=== PATIENT | female | born 1975 | race Caucasian/White ===

== ENCOUNTER 2017-06-01 15:38 | Emergency (ER) | payer SELFPAY ==
[~2017-06-01] VITALS: Ht 154.9 cm; Wt 70.8 kg
[~2017-06-01 15:38] MED LIST: AUGMENTIN 875-1 EACH PO; BUPROPION XL150 MG PO; CENTRUM SILVER1 EAC3 PO; CITALOPRAM HBR20 MG PO; CITALOPRAM HBR40 MG PO; DEPAKENE250 MG PO; DULOXETINE HCL60 MG PO; GABAPENTIN600 MG; GABAPENTIN600 MG PO; IBUPROFEN800 MG PO; NORCO 5-325 TA1 EACH PO; NORCO 7.5-3251 EACH PO; PERCOCET 5-3251 EACH PO; TRAZODONE HCL100 MG PO; VOLTAREN-XR100 MG PO; ZOFRAN ODT4 MG PO
[2017-06-01] MEDS ORDERED: ERYTHROMYCIN1 GM OD (17:01)
[2017-06-01] MEDS ORDERED: PERCOCET 5-3251 EACH PO (17:01)
== END 2017-06-01 17:29 | disposition home or self-care (01) ==
LOC: ED 15:38
DX: T15.91XA Foreign body on external eye, part unspecified, right eye, initial encounter (principal); J45.909 Unspecified asthma, uncomplicated; F17.200 Nicotine dependence, unspecified, uncomplicated; Z98.51 Tubal ligation status; Z79.899 Other long term (current) drug therapy
CPT/HCPCS: 99283